=== PATIENT | male | born 1995 | race Caucasian/White ===

== ENCOUNTER → 2020-09-06 15:56 | Outpatient (CLI) | payer OTHER, SELFPAY ==
[2020-09-06 18:25] LABS: Hemoglobin A1c 4.7 % (3.8-5.6)
[2020-09-06 18:59] LABS: Cholesterol 129 mg/dL (200); High Density Lipoprotein 52 mg/dL; Triglycerides 45 mg/dL; Very Low Density Lipoprotein 9 mg/dL (5-40)
[2020-09-11 12:07] LABS: Testosterone, Free 16.93 ng/dL (5.00-21.00)
[2020-09-12 08:44] LABS: Testosterone, % Free 2.74 % (1.50-4.20); Testosterone, Total 618 ng/dL (264-916)
== END ==
PROVIDERS: PCP Family Medicine; Visit Provider Family Medicine
DX: E78.5 Hyperlipidemia, unspecified (principal); R73.09 Other abnormal glucose; N52.9 Male erectile dysfunction, unspecified
CPT/HCPCS: 36415; 80061; 83036; 84402; 84403